=== PATIENT | male | born 1935 | race Caucasian/White ===

== ENCOUNTER 2022-05-16 14:38 | Outpatient (CLI) | payer MEDICARE, BC | END 2022-05-16 14:39 | disposition home or self-care (01) | LOC: CSHCT 14:38 | PROVIDERS: ATTEND Orthopaedic Surgery | DX: M25.561 Pain in right knee (principal); M25.562 Pain in left knee; M13.862 Other specified arthritis, left knee; M13.861 Other specified arthritis, right knee; M25.462 Effusion, left knee; M25.461 Effusion, right knee ==